=== PATIENT | male | born 1940 | race Caucasian/White ===

== ENCOUNTER 2022-03-19 09:22 | Outpatient (CLI) | payer MEDICARE, SELFPAY ==
[2022-03-19 14:48] LABS: Chloride* 102 mmol/L (96-114); Potassium* 4.7 mmol/L (3.6-5.1); Sodium* 138 mmol/L (135-149)
[2022-03-19 14:51] LABS: Blood Urea Nitrogen* 23 mg/dL (7-30); Carbon Dioxide* 28 mmol/L (20-32); Cholesterol* 212 mg/dL (90-199); Creatinine* 1.2 mg/dL (0.5-1.5); Estimated Glomerular Filt Rate 60 ml/min; Glucose* 88 mg/dL (60-115); Triglycerides* 141 mg/dL (40-149)
[2022-03-19 14:52] LABS: Calcium* 9.1 mg/dL (8.4-10.6); HDL Cholesterol* 43 mg/dL (>=40); LDL Cholesterol Calculated 141 mg/dL (<100)
== END 2022-03-19 09:23 | disposition home or self-care (01) ==
PROVIDERS: PCP Family Medicine; Visit Provider Family Medicine
DX: E78.5 Hyperlipidemia, unspecified (principal); I10 Essential (primary) hypertension
CPT/HCPCS: 80048; 80061

== ENCOUNTER 2023-03-20 11:01 | Outpatient (CLI) | payer MEDICARE, SELFPAY | END 2023-03-20 11:02 | disposition home or self-care (01) | PROVIDERS: PCP Family Medicine; Visit Provider Family Medicine | DX: Z00.00 Encounter for general adult medical examination without abnormal findings (principal); I10 Essential (primary) hypertension; E78.5 Hyperlipidemia, unspecified | CPT/HCPCS: 80048; 80061 ==

== ENCOUNTER 2025-03-24 08:53 | Outpatient (CLI) | payer MEDICARE, SELFPAY | END 2025-03-24 08:54 | disposition home or self-care (01) | PROVIDERS: PCP Family Medicine; Visit Provider Family Medicine | DX: E78.2 Mixed hyperlipidemia (principal); R53.83 Other fatigue; Z13.21 Encounter for screening for nutritional disorder | CPT/HCPCS: 80061; 82607; 84443 ==